=== PATIENT | male | born 1950 ===

== ENCOUNTER 2021-12-15 19:10 | Inpatient (IN) | payer MEDICARE ==
[~2021-12-15] VITALS: Ht 165.1 cm; Wt 87.1 kg
--- NOTE | 2021-12-15 19:25 | NUR ---
Patient was called to be triaged but was not present in the waiting room.
--- NOTE | 2021-12-15 21:45 | NUR ---
After beinf traiged, patient was sent back to waiting room due to no beds available in the ER.
[2021-12-15] MEDS ORDERED: LOVA40TA2 PO (22:08)
[2021-12-15] MEDS ORDERED: ALFU10TA10 PO (22:08)
[2021-12-15] MEDS ORDERED: MAGN400C PO (22:08)
[2021-12-15] MEDS ORDERED: METO50TA16 PO (22:08)
[2021-12-15] MEDS ORDERED: BENA20TA9 PO (22:08)
--- NOTE | 2021-12-16 00:49 | NUR ---
Patient placed in room 3A at this time.
[2021-12-16 01:53] LABS: HEMATOCRIT 36.8 % (36.7-47.1); MEAN CORPUSCULAR HEMOGLOBIN 30.3 uug (23.8-33.4); MEAN CORPUSCULAR VOLUME 90.3 fL (73.0-96.2); PLATELET COUNT (AUTO) 138 K/uL (152-348)
[2021-12-16] MEDS ORDERED: CEFEPIME HCL 2 G in IV DEXTROSE 5% 100 ML IV ONE (02:00)
[2021-12-16] MEDS ORDERED: VANCOMYCIN 1G/D5W 200 ML PIGGYBACK IV ONE (02:00)
[2021-12-16] MEDS ORDERED: IV NORMAL SALINE 500 ML IV ONE (02:00)
[2021-12-16] MEDS ORDERED: VANCOMYCIN IV 500 MG in IV DEXTROSE 5% 100 ML IV ONE (02:00)
[2021-12-16 02:09] LABS: BILIRUBIN,DIRECT 0.4 mg/dL (0.0-0.2); BILIRUBIN,TOTAL 1.6 mg/dL (0.2-1.0); CREATININE 0.8 mg/dL (0.6-1.3); POTASSIUM 3.6 mmol/L (3.5-5.1); TOTAL PROTEIN, SERUM 7.7 g/dL (6.4-8.2)
[2021-12-16] MEDS ORDERED: VANCOMYCIN IV 200 ML ONE (02:16)
[2021-12-16] MEDS ORDERED: VANCOMYCIN HCL 500 MG VIAL ONE (02:16)
[2021-12-16] MEDS ORDERED: CEFEPIME HCL 1 G VIAL ONE (02:17)
--- NOTE | 2021-12-16 02:20 | NUR ---
pt taken to cat scan.
--- NOTE | 2021-12-16 02:46 | NUR ---
pt returned from cat scan.
[2021-12-16] MEDS ORDERED: NITROGLYCERIN 0.4 MG/TAB BOTTLE SL PRN (03:45)
--- NOTE | 2021-12-16 03:49 | NUR ---
Alejandra Christine called and spoke with Dr. Escalante for admission to the hospital.
--- NOTE | 2021-12-16 03:53 | NUR ---
spoke with boiling house hand Mike she states there is no room for the pt upstairs, she is made aware he is tele status.
[2021-12-16 05:57] LABS: *BILIRUBIN,URIN NEGATIVE (NEGATIVE); *BLOOD, URINE 1+ (NEGATIVE); *CLARITY,URINE CLEAR (CLEAR); *COLOR,URINE YELLOW (YELLOW); *KETONES,URINE TRACE (NEGATIVE); *UROBILINOGEN,URINE 0.2 E.U./dl (NORMAL); LEUKOCYTE ESTERASE ,URINE NEGATIVE (NEGATIVE); NITRITE, URINE NEGATIVE (NEGATIVE); UGLUCOSE NEGATIVE (NEGATIVE)
[2021-12-16] MEDS ORDERED: CEFEPIME HCL 1 G in IV DEXTROSE 5% 50 ML IV SCH (06:00)
[2021-12-16] MEDS ORDERED: ENOXAPARIN SODIUM 40 MG/0.4 ML DISP.SYRIN SQ SCH (06:00)
[2021-12-16] MEDS ORDERED: ENOXAPARIN SODIUM 40 MG/0.4 ML DISP.SYRIN SQ ONE (06:17)
[2021-12-16 06:39] LABS: BACTERIA,URINE FEW /HPF (NONE SEEN); SQUAMOUS EPITHELIAL CELL,UR FEW /HPF (NONE SEEN); WBC,URINE 0-3 /HPF (0-3)
[2021-12-16 07:23] LABS: HEMATOCRIT 34.5 % (36.7-47.1); MEAN CORPUSCULAR HEMOGLOBIN 30.8 uug (23.8-33.4); MEAN CORPUSCULAR VOLUME 89.6 fL (73.0-96.2)
[2021-12-16 07:28] LABS: BILIRUBIN,TOTAL 1.4 mg/dL (0.2-1.0); CREATININE 0.7 mg/dL (0.6-1.3); MAGNESIUM 1.9 mg/dL (1.8-2.4); PHOSPHOROUS 2.9 mg/dL (2.5-4.9); POTASSIUM 3.4 mmol/L (3.5-5.1); TOTAL PROTEIN, SERUM 6.9 g/dL (6.4-8.2)
[2021-12-16 07:31] LABS: PLATELET COUNT (AUTO) 36 K/uL (152-348)
--- NOTE | 2021-12-16 07:32 | NUR ---
patient resting in bed, GCS 15, awaken spontaniously. patient AAOx4, has bilateral LE edema +2, patient has left leg redness and warm to touch, history of cellulitis, night nurse informed me of abx admin during his shift
[2021-12-16 07:34] LABS: THYROID STIMULATING HORMONE 3.463 mIU/mL (0.358-3.740)
[2021-12-16 08:08] LABS: BAND % (MANUAL) 1 % (0-10); LYMPHOCYTES % (MANUAL) 18 % (20-40); MONOCYTES % (MANUAL) 8 % (2-10); NEUTROPHILS % (MANUAL) 73 % (42-75)
[2021-12-16] MEDS ORDERED: FUROSEMIDE 40 MG/4 ML VIAL IVP SCH (09:00)
[2021-12-16] MEDS ORDERED: METOPROLOL TARTRATE 50 MG TABLET ONE ×2 (09:37→21:26)
[2021-12-16] MEDS: METOPROLOL TARTRATE 50 MG TABLET PO SCH ×2 (09:46→21:52)
--- NOTE | 2021-12-16 10:27 | NUR ---
WOUND CARE CONSULT: PT PRESENTS WITH VERY RED,WARM SWOLLEN LEFT LEG, ESPECIALLY FOOT AND LOWER LEG, PRESENT ON ADMISSION. DR DUPREE NOTIFIED OF DPM CONSULT REQUEST. IN AGREEMENT WITH PLAN OF CARE.
[2021-12-16] MEDS ORDERED: POTASSIUM CHLORIDE 20 MEQ TAB.PRT.SR ONE (10:54)
[2021-12-16] MEDS ORDERED: POTASSIUM CHLORIDE 20 MEQ TAB.PRT.SR PO ONE (11:00)
[2021-12-16 11:05] LABS: HEMATOCRIT 34.8 % (36.7-47.1); MEAN CORPUSCULAR HEMOGLOBIN 30.6 uug (23.8-33.4); MEAN CORPUSCULAR VOLUME 90.4 fL (73.0-96.2); PLATELET COUNT (AUTO) 147 K/uL (152-348)
[2021-12-16] MEDS: APIXABAN 5 MG TABLET PO SCH ×2 (12:58→21:51)
[2021-12-16] MEDS: CEFEPIME HCL 2 G in IV DEXTROSE 5% 100 ML IV SCH (17:53)
--- NOTE | 2021-12-16 19:01 | NUR ---
patient resting in bed, family at bedside, awaiting bed in [facility], report given to Silvia
--- NOTE | 2021-12-16 19:50 | NUR ---
called for bed. will call us back
--- NOTE | 2021-12-16 20:00 | NUR ---
3rd floor called back. No beds available
[2021-12-16] MEDS ORDERED: VANCOMYCIN IV 1,250 MG in IV DEXTROSE 5% 250 ML IV SCH (21:00)
[2021-12-16] MEDS ORDERED: ALFUZOSIN HCL 10 MG TAB.SR.24H PO ONE (21:26)
[2021-12-16] MEDS: ALFUZOSIN HCL 10 MG TAB.SR.24H PO SCH (21:52)
[2021-12-16] MEDS: ZOLPIDEM 5 MG TABLET PO SCH (22:00)
[2021-12-16] MEDS ORDERED: ZOLPIDEM 5 MG TABLET ONE (22:43)
[2021-12-17] MEDS: CEFEPIME HCL 2 G in IV DEXTROSE 5% 100 ML IV SCH ×2 (05:02→15:40)
--- NOTE | 2021-12-17 06:00 | NUR ---
Patient will go to room 330
--- NOTE | 2021-12-17 06:10 | NUR ---
Called 3rd floor to give report. As per Bernice, the nurses are busy and unable to take the patient.
[2021-12-17 07:13] LABS: MEAN CORPUSCULAR HEMOGLOBIN 30.3 uug (23.8-33.4); MEAN CORPUSCULAR VOLUME 90.3 fL (73.0-96.2); PLATELET COUNT (AUTO) 124 K/uL (152-348)
[2021-12-17 07:39] LABS: BILIRUBIN,TOTAL 1.5 mg/dL (0.2-1.0); CREATININE 0.7 mg/dL (0.6-1.3); PHOSPHOROUS 2.8 mg/dL (2.5-4.9); POTASSIUM 3.8 mmol/L (3.5-5.1)
--- NOTE | 2021-12-17 08:19 | NUR ---
patient resting in bed, eating breakfast awaiting transfer
--- NOTE | 2021-12-17 08:40 | NUR ---
Pt trans to tele floor room 330, NAD noted.
--- NOTE | 2021-12-17 08:53 | NUR ---
patient transfered to bed 330 report given to Asia BEAULIEU
--- NOTE | 2021-12-17 09:00 | NUR ---
ADMITTED FROM ER A71 YO MALE ALERT AND ORIENTED X3 WITH ADMITTING DX OF CELLULITIS LEFT LEG. CONNECTED ON MONITOR REMAINS AFIB CONTROLLED AT A RATE OF 79/MIN. DENIES CHEST PAIN, SOB BUT DISCOMFORT ON LLE. NOTED LLE REDDENED AND TENDER TO TOUCH. ROUTINE ADMISSION ASSESSMENT INITIATED, HOSPITALIST NOTIFIED FOR FURTHER ORDERS.
[2021-12-17 09:06] VITALS: BP 160/73
[2021-12-17] MEDS: METOPROLOL TARTRATE 50 MG TABLET PO SCH ×2 (09:31→21:07)
[2021-12-17] MEDS: APIXABAN 5 MG TABLET PO SCH ×2 (09:32→21:08)
[2021-12-17] MEDS: BENAZEPRIL HCL 10 MG TABLET PO SCH (09:32)
[2021-12-17 10:13] LABS: BAND % (MANUAL) 4 % (0-10); EOSINOPHILS % (MANUAL) 4 % (0-8); LYMPHOCYTES % (MANUAL) 29 % (20-40); MONOCYTES % (MANUAL) 6 % (2-10); NEUTROPHILS % (MANUAL) 57 % (42-75)
[2021-12-17 12:03] VITALS: BP 124/75
[2021-12-17 16:07] VITALS: BP 123/82
--- NOTE | 2021-12-17 18:32 | NUR ---
NO ACUTE CHANGE FROM ADMISSION ASSESSMENT. STARTED ON IV ANTIBIOTIC FOR CELLULITIS NO ADVERSE OR ALLERGY REACTION NOTED. CONTINUE TELE MONITORING FOR CHF. AFIB ON MONITOR
--- NOTE | 2021-12-17 19:30 | NUR ---
Received patient lying in bed. AAOx4. In no apparent distress. Denies any pain or SOB. Controlled A. fib on tele with HR of 83/min. IV site on right FA intact and patent. BLE reddened, skin intact. Needs assessed and attended to. Safety measure initiated and call light within reached.
[2021-12-17 20:00] VITALS: BP 131/73
[2021-12-17] MEDS: ZOLPIDEM 5 MG TABLET PO SCH (21:07)
[2021-12-17] MEDS: ALFUZOSIN HCL 10 MG TAB.SR.24H PO SCH (21:07)
[2021-12-18 04:00] VITALS: BP 146/78
[2021-12-18] MEDS: CEFEPIME HCL 2 G in IV DEXTROSE 5% 100 ML IV SCH (04:50)
--- NOTE | 2021-12-18 05:42 | NUR ---
Patient slept well during the night. In no acute distress. No complain of any pain or SOB. Controlled A. fib on tele with HR of 81/min. IV site on right FA intact and patent. No adverse reaction noted from IV antibiotic. Needs attended to and met. Safety measure maintained and call light within reached.
[2021-12-18 06:44] LABS: HEMATOCRIT 34.7 % (36.7-47.1); MEAN CORPUSCULAR HEMOGLOBIN 30.2 uug (23.8-33.4); MEAN CORPUSCULAR VOLUME 89.7 fL (73.0-96.2); PLATELET COUNT (AUTO) 152 K/uL (152-348)
[2021-12-18 07:06] LABS: CREATININE 0.8 mg/dL (0.6-1.3); PHOSPHOROUS 3.3 mg/dL (2.5-4.9); POTASSIUM 3.6 mmol/L (3.5-5.1)
--- NOTE | 2021-12-18 08:00 | NUR ---
PATIENT AWAKE ALERT AND ORIENTED X3, COOPERATIVE AND APPROPRIATE IN ALL HIS RESPONSES, DENIES PAIN/SOB. AFIB ON MONITOR.
[2021-12-18] MEDS: APIXABAN 5 MG TABLET PO SCH ×2 (08:42→21:58)
[2021-12-18] MEDS: BENAZEPRIL HCL 10 MG TABLET PO SCH (08:42)
[2021-12-18] MEDS: METOPROLOL TARTRATE 50 MG TABLET PO SCH ×2 (08:43→22:06)
[2021-12-18] MEDS ORDERED: FUROSEMIDE 20 MG/2 ML VIAL IV ONE (09:15)
--- NOTE | 2021-12-18 09:30 | NUR ---
SEEN BY HOSPITALIST PATIENT STATUS CHANGED TO MS
--- NOTE | 2021-12-18 10:00 | NUR ---
ASSISTED TO BATHROOM WITH 2 PERSON ASSIST ON TRANSFER FROM BED TO TOILET AND BACK. PATIENT WILL BE FOLLOWED BY PT.
--- NOTE | 2021-12-18 11:30 | NUR ---
SEEN BY PHYSICAL THERAPIST FOR FOLLOW-UP PER PT PT WILL BENEFIT FROM PHYSICAL THERAPY. SEE NOTES
[2021-12-18 12:00] VITALS: BP 101/67
[2021-12-18] MEDS ORDERED: CEFTRIAXONE 2 G VIAL IM SCH (12:30)
[2021-12-18] MEDS: CEFTRIAXONE 2 G in IV DEXTROSE 5% 100 ML IV SCH (14:27)
[2021-12-18 16:00] VITALS: BP 124/78
[2021-12-18 20:20] VITALS: BP 128/85
[2021-12-18] MEDS: ZOLPIDEM 5 MG TABLET PO SCH (22:00)
[2021-12-18] MEDS: ALFUZOSIN HCL 10 MG TAB.SR.24H PO SCH (22:00)
--- NOTE | 2021-12-19 00:22 | NUR ---
PT RESTING IN GURNEY WITH EYES CLOSED. NAD NOTED, VS STABLE, RESPIRATION EVEN AND UNLABORED ON RA. ROOM LIGHTS DIMMED AND SAFETY MEASURES IN PLACE.
[2021-12-19 04:00] VITALS: BP 130/84
--- NOTE | 2021-12-19 07:29 | NUR ---
PT REPORT GIVEN TO DARBY BEAULIEU FOR CONTINUITY OF CARE. ALL CARE ENDORSED, QUESTIONS AND CONCERNS ADDRESSED.
[2021-12-19] MEDS: BENAZEPRIL HCL 10 MG TABLET PO SCH (08:31)
[2021-12-19] MEDS: APIXABAN 5 MG TABLET PO SCH (08:31)
[2021-12-19] MEDS: METOPROLOL TARTRATE 50 MG TABLET PO SCH (08:31)
[2021-12-19 12:09] VITALS: BP 124/74
[2021-12-19] MEDS: CEFTRIAXONE 2 G in IV DEXTROSE 5% 100 ML IV SCH (13:59)
[2021-12-19 16:30] VITALS: BP 138/71
[2021-12-19] MEDS ORDERED: NITR0.4T48 SL (17:57)
[2021-12-19] MEDS ORDERED: PANT40TA2 PO (17:57)
[2021-12-19] MEDS ORDERED: APIX5TAB PO (17:57)
[2021-12-19] MEDS ORDERED: ALFU10TA10 PO (17:57)
[2021-12-19] MEDS ORDERED: ASCO500C18 PO (17:57)
[2021-12-19] MEDS ORDERED: METO50TA16 PO (17:57)
[2021-12-19] MEDS ORDERED: ZINC220T4 PO (17:57)
[2021-12-19] MEDS ORDERED: CEFT1FRO2 IV (17:57)
[2021-12-19] MEDS ORDERED: ZOLP5TAB2 PO (17:57)
[2021-12-19] MEDS ORDERED: MULT-594 PO (17:57)
--- NOTE | 2021-12-19 18:47 | NUR ---
Patient received care well throughout shift with no complaints of pain or distress. IV site patent and intact. Patient had bowel movement today. Patient to be discharged and admitted to rehab unit. Will endorse information to PM nurse.
== END 2021-12-19 19:50 | DRG 871 ==
LOC: ER 19:14 → TRANSITION 12-16 05:34 → TELE3 12-17 08:18 → MEDSURG3 12-18 10:31
PROVIDERS: ADMIT Internal Medicine; ATTEND Internal Medicine
DX: A41.9 Sepsis, unspecified organism (principal); E43 Unspecified severe protein-calorie malnutrition; I50.31 Acute diastolic (congestive) heart failure; L03.116 Cellulitis of left lower limb; I48.20 Chronic atrial fibrillation, unspecified; D68.59 Other primary thrombophilia; L03.115 Cellulitis of right lower limb; J90 Pleural effusion, not elsewhere classified; D64.9 Anemia, unspecified; Z79.01 Long term (current) use of anticoagulants; D69.6 Thrombocytopenia, unspecified; E66.9 Obesity, unspecified; E78.5 Hyperlipidemia, unspecified; Z20.822 Contact with and (suspected) exposure to COVID-19; Z88.0 Allergy status to penicillin; I87.2 Venous insufficiency (chronic) (peripheral); R74.01 Elevation of levels of liver transaminase levels; N40.0 Benign prostatic hyperplasia without lower urinary tract symptoms; Z74.09 Other reduced mobility; R53.1 Weakness; M79.662 Pain in left lower leg; Z68.32 Body mass index [BMI] 32.0-32.9, adult; I11.0 Hypertensive heart disease with heart failure; I89.0 Lymphedema, not elsewhere classified; E80.6 Other disorders of bilirubin metabolism
CPT/HCPCS: 36415; 70030-TC; 71045; 73551; 73590; 73700; 83605; 83690; 83735; 84100; 84443; 84484; 85025; 86803; 87040; 87806; 93005; 93307; 97161; A4663; G0378; J0692; J0696; J1650; J1940; J3370; J7040; J7050; J8499

== ENCOUNTER 2021-12-19 20:07 | Inpatient (IN) | payer MEDICARE ==
[~2021-12-19] VITALS: Ht 165.1 cm; Wt 89.4 kg
[2021-12-19 20:00] VITALS: BP 136/87
[~2021-12-19 20:07] MED LIST: ALFU10TA10 PO; APIX5TAB PO; ASCO500C18 PO; BENA20TA9 PO; CEFT1FRO2 IV; LOVA40TA2 PO; MAGN400C PO; METO50TA16 PO; MULT-594 PO; NITR0.4T48 SL; PANT40TA2 PO; ZINC220T4 PO; ZOLP5TAB2 PO
[2021-12-19] MEDS ORDERED: REMEDY ESSENTIAL ZINC PASTE 113 GM TOP PRN (20:15)
[2021-12-19] MEDS ORDERED: NITROGLYCERIN 0.4 MG/TAB BOTTLE SL PRN (20:45)
[2021-12-19] MEDS ORDERED: ZOLPIDEM 5 MG TABLET PO SCH (21:00)
[2021-12-19] MEDS ORDERED: CEFTRIAXONE 1 G in IV DEXTROSE 5% 50 ML IV SCH (21:00)
[2021-12-19] MEDS: ALFUZOSIN HCL 10 MG TAB.SR.24H PO SCH (21:32)
[2021-12-19] MEDS: APIXABAN 5 MG TABLET PO SCH (21:33)
[2021-12-19] MEDS: METOPROLOL TARTRATE 50 MG TABLET PO SCH (21:33)
--- NOTE | 2021-12-19 22:25 | NUR ---
Admitted pt from [facility] to Rehab with no respiratory distress noted. He is alert and oriented, able to make needs known. Initial assessment done, full body assessment performed with pictures taken and placed in chart. Heplock on VIMAL patent and intact, flushed with NS. Med recon to be done by Venecia GUTIERREZ and Dr. Grant informed of admission. Urinal at bedside. All needs attended. Call light placed within reach, oriented to room. Will continue to monitor.
[2021-12-20 04:00] VITALS: BP 125/86
[2021-12-20] MEDS: PANTOPRAZOLE SODIUM 40 MG TABLET.DR PO SCH (06:23)
--- NOTE | 2021-12-20 06:50 | NUR ---
Pt slept intermittently throughout the night, easily arousable for care. Denies pain and discomfort at this time. Urinal at bedside. All needs attended. Call light placed within reach. Will endorse to next shift.
[2021-12-20 08:42] VITALS: BP 116/83
[2021-12-20] MEDS ORDERED: Medication Not On Formulary EA (Ascorbic Acid (Vitamin C) 500 MG) PO SCH (09:00)
[2021-12-20] MEDS ORDERED: Medication Not On Formulary EA (Zinc Sulfate 1 TAB) PO SCH (09:00)
[2021-12-20] MEDS ORDERED: Medication Not On Formulary EA (Multivitamins (Multivitamin) 1 EACH) PO SCH (09:00)
[2021-12-20] MEDS: ZINC SULFATE 220 MG CAPSULE PO SCH (09:16)
[2021-12-20] MEDS: MULTIVITAMINS,THERAPEUTIC TABLET PO SCH (09:16)
[2021-12-20] MEDS: ASCORBIC ACID 500 MG TABLET PO SCH (09:16)
[2021-12-20] MEDS: BENAZEPRIL HCL 20 MG TABLET PO SCH (09:19)
[2021-12-20] MEDS: METOPROLOL TARTRATE 50 MG TABLET PO SCH ×2 (09:20→20:58)
[2021-12-20] MEDS: APIXABAN 5 MG TABLET PO SCH ×2 (09:24→21:04)
[2021-12-20 16:14] VITALS: BP 122/83
[2021-12-20 20:33] VITALS: BP 123/76
[2021-12-20] MEDS: ZOLPIDEM 5 MG TABLET PO PRN (20:58)
[2021-12-20] MEDS: ALFUZOSIN HCL 10 MG TAB.SR.24H PO SCH (20:58)
[2021-12-20] MEDS ORDERED: CEFTRIAXONE 2 G in IV DEXTROSE 5% 50 ML IV SCH (21:00)
--- NOTE | 2021-12-20 23:53 | NUR ---
Awake alert and oriented x4 Family in with patient at beginning of shift. VSS. On IV ABT given as scheduled. No acute distress noted. Will monitor patient. Repositioned for comfort. Uses urinal when voiding. No BM noted this shift. Kept comfortable.
[2021-12-21 04:33] VITALS: BP 107/63
[2021-12-21] MEDS: PANTOPRAZOLE SODIUM 40 MG TABLET.DR PO SCH (06:08)
[2021-12-21 07:31] LABS: HEMATOCRIT 38.8 % (36.7-47.1); MEAN CORPUSCULAR HEMOGLOBIN 30.2 uug (23.8-33.4)
[2021-12-21 07:53] LABS: BILIRUBIN,TOTAL 0.3 mg/dL (0.2-1.0); CREATININE 0.8 mg/dL (0.6-1.3); MAGNESIUM 1.9 mg/dL (1.8-2.4); PHOSPHOROUS 3.8 mg/dL (2.5-4.9)
[2021-12-21 08:28] LABS: PLATELET COUNT (AUTO) 217 K/uL (152-348)
[2021-12-21] MEDS: MULTIVITAMINS,THERAPEUTIC TABLET PO SCH (08:37)
[2021-12-21] MEDS: ASCORBIC ACID 500 MG TABLET PO SCH (08:37)
[2021-12-21] MEDS: METOPROLOL TARTRATE 50 MG TABLET PO SCH ×2 (08:39→20:48)
[2021-12-21] MEDS: BENAZEPRIL HCL 20 MG TABLET PO SCH (08:39)
[2021-12-21] MEDS: ZINC SULFATE 220 MG CAPSULE PO SCH (08:40)
[2021-12-21] MEDS: APIXABAN 5 MG TABLET PO SCH ×2 (08:41→20:49)
[2021-12-21] MEDS: CEphaleXIN 500 MG CAPSULE PO SCH ×2 (13:29→17:37)
[2021-12-21 16:41] VITALS: BP 121/70
[2021-12-21 18:52] LABS: NEUTROPHILS % (MANUAL) 0 % (42-75)
[2021-12-21 20:40] VITALS: BP 144/83
[2021-12-21] MEDS: ALFUZOSIN HCL 10 MG TAB.SR.24H PO SCH (20:48)
[2021-12-21] MEDS: ACIDOPHILUS/BULGARICUS CHEW TAB PO SCH (20:48)
[2021-12-22] MEDS: CEphaleXIN 500 MG CAPSULE PO SCH ×5 (00:03→23:21)
[2021-12-22] MEDS: ZOLPIDEM 5 MG TABLET PO PRN (00:09)
[2021-12-22] MEDS: PANTOPRAZOLE SODIUM 40 MG TABLET.DR PO SCH (05:41)
[2021-12-22 05:51] VITALS: BP 127/76
[2021-12-22 07:30] VITALS: BP 116/72
--- NOTE | 2021-12-22 08:00 | NUR ---
received awake comfortably watching tv. no ss of pain or sob. iv intact no ss of infiltration or phlebitis. pt has no complaints at this time. bed at lowest and locked, siderails up x2, bed alarm on, urinal and call light in reach. will cont to monitor.
[2021-12-22] MEDS: ACIDOPHILUS/BULGARICUS CHEW TAB PO SCH ×2 (10:36→20:37)
[2021-12-22] MEDS: ASCORBIC ACID 500 MG TABLET PO SCH (10:36)
[2021-12-22] MEDS: MULTIVITAMINS,THERAPEUTIC TABLET PO SCH (10:36)
[2021-12-22] MEDS: BENAZEPRIL HCL 20 MG TABLET PO SCH (10:37)
[2021-12-22] MEDS: ZINC SULFATE 220 MG CAPSULE PO SCH (10:37)
[2021-12-22] MEDS: METOPROLOL TARTRATE 50 MG TABLET PO SCH ×2 (10:37→20:38)
[2021-12-22] MEDS: APIXABAN 5 MG TABLET PO SCH ×2 (10:37→20:39)
--- NOTE | 2021-12-22 11:10 | NUR ---
INDIVIDUALIZED PLAN OF CARE
--- NOTE | 2021-12-22 15:17 | NUR ---
seen and examined by dr. lloyd with new order for podiatry consult carried out.
[2021-12-22 16:00] VITALS: BP 110/71
--- NOTE | 2021-12-22 18:23 | NUR ---
needs attended. safety measures kept. call light and personal belongings in reach. comfortable.
[2021-12-22 20:00] VITALS: BP 117/69
[2021-12-22] MEDS: ALFUZOSIN HCL 10 MG TAB.SR.24H PO SCH (20:38)
[2021-12-23 04:24] VITALS: BP 111/72
[2021-12-23] MEDS: PANTOPRAZOLE SODIUM 40 MG TABLET.DR PO SCH (05:31)
[2021-12-23] MEDS: CEphaleXIN 500 MG CAPSULE PO SCH ×3 (05:31→19:02)
[2021-12-23 07:44] VITALS: BP 120/88
[2021-12-23] MEDS: METOPROLOL TARTRATE 50 MG TABLET PO SCH ×2 (11:03→21:27)
[2021-12-23] MEDS: ASCORBIC ACID 500 MG TABLET PO SCH (11:03)
[2021-12-23] MEDS: APIXABAN 5 MG TABLET PO SCH ×2 (11:03→21:28)
[2021-12-23] MEDS: ZINC SULFATE 220 MG CAPSULE PO SCH (11:04)
[2021-12-23] MEDS: ACIDOPHILUS/BULGARICUS CHEW TAB PO SCH ×2 (11:04→21:26)
[2021-12-23] MEDS: BENAZEPRIL HCL 20 MG TABLET PO SCH (11:05)
[2021-12-23] MEDS: MULTIVITAMINS,THERAPEUTIC TABLET PO SCH (11:05)
[2021-12-23 16:00] VITALS: BP 126/82
[2021-12-23 20:24] VITALS: BP 113/73
[2021-12-23] MEDS: ALFUZOSIN HCL 10 MG TAB.SR.24H PO SCH (21:28)
[2021-12-23] MEDS: ZOLPIDEM 5 MG TABLET PO PRN (21:29)
[2021-12-24 04:30] VITALS: BP 108/75
[2021-12-24] MEDS: PANTOPRAZOLE SODIUM 40 MG TABLET.DR PO SCH (05:40)
[2021-12-24 07:30] VITALS: BP 124/80
[2021-12-24] MEDS: MULTIVITAMINS,THERAPEUTIC TABLET PO SCH (10:06)
[2021-12-24] MEDS: APIXABAN 5 MG TABLET PO SCH ×2 (10:06→21:01)
[2021-12-24] MEDS: ASCORBIC ACID 500 MG TABLET PO SCH (10:06)
[2021-12-24] MEDS: METOPROLOL TARTRATE 50 MG TABLET PO SCH ×2 (10:06→20:55)
[2021-12-24] MEDS: CEphaleXIN 500 MG CAPSULE PO SCH ×2 (10:07→16:49)
[2021-12-24] MEDS: BENAZEPRIL HCL 20 MG TABLET PO SCH (10:07)
[2021-12-24] MEDS: ZINC SULFATE 220 MG CAPSULE PO SCH (10:07)
[2021-12-24] MEDS: ACIDOPHILUS/BULGARICUS CHEW TAB PO SCH ×2 (10:08→20:53)
[2021-12-24 16:00] VITALS: BP 107/66
--- NOTE | 2021-12-24 16:03 | NUR ---
INTERDISCIPLINARY TEAM CONFERENCE
--- NOTE | 2021-12-24 17:21 | NUR ---
followed up with the podiatry. Per Dr Pinto, patient will be seen in a day or two. Informed patient, note with understanding. will continue to monitor.
--- NOTE | 2021-12-24 18:58 | NUR ---
Patient remained stable during the shift. no other concerns identified. Removed peripheral line per family/patient request. Patient has no iv meds at this time. per family and patient, reinsert if needed. patient tolerated it well. no pain noted. kept safe at all times. all needs attended. will endorse to the next shift for continuity of care.
--- NOTE | 2021-12-24 19:15 | NUR ---
Received patient on bed, alert and oriented x3, on room air, no shortness of breath noted, no complaint of pain. Safety precautions provided, call light placed within reach.
[2021-12-24 20:00] VITALS: BP 116/68
[2021-12-24] MEDS: ALFUZOSIN HCL 10 MG TAB.SR.24H PO SCH (20:57)
--- NOTE | 2021-12-24 21:20 | NUR ---
Patient requested for Ambien to induced sleep.
[2021-12-25 04:00] VITALS: BP 116/69
[2021-12-25] MEDS: PANTOPRAZOLE SODIUM 40 MG TABLET.DR PO SCH (06:17)
[2021-12-25 06:23] LABS: HEMATOCRIT 39.1 % (36.7-47.1); MEAN CORPUSCULAR HEMOGLOBIN 29.8 uug (23.8-33.4); MEAN CORPUSCULAR VOLUME 89.2 fL (73.0-96.2); PLATELET COUNT (AUTO) 190 K/uL (152-348)
--- NOTE | 2021-12-25 06:40 | NUR ---
Patient slept well, no shortness of breath, able to use urinal for voiding, no complaint of pain. For continuity of care.
[2021-12-25 06:43] LABS: CREATININE 0.8 mg/dL (0.6-1.3); PHOSPHOROUS 4.4 mg/dL (2.5-4.9)
[2021-12-25 08:00] VITALS: BP 114/74
[2021-12-25] MEDS: APIXABAN 5 MG TABLET PO SCH ×2 (10:02→20:56)
[2021-12-25] MEDS: MULTIVITAMINS,THERAPEUTIC TABLET PO SCH (10:03)
[2021-12-25] MEDS: ACIDOPHILUS/BULGARICUS CHEW TAB PO SCH ×2 (10:03→20:55)
[2021-12-25] MEDS: CEphaleXIN 500 MG CAPSULE PO SCH ×2 (10:04→17:22)
[2021-12-25] MEDS: BENAZEPRIL HCL 20 MG TABLET PO SCH (10:04)
[2021-12-25] MEDS: METOPROLOL TARTRATE 50 MG TABLET PO SCH ×2 (10:04→20:57)
[2021-12-25] MEDS: ASCORBIC ACID 500 MG TABLET PO SCH (10:04)
[2021-12-25] MEDS: ZINC SULFATE 220 MG CAPSULE PO SCH (10:04)
[2021-12-25 16:00] VITALS: BP 107/62
--- NOTE | 2021-12-25 18:44 | NUR ---
no acute distress identified during the shift. all needs attended. kept safe. will endorse to the next shift continuity of care.
[2021-12-25 20:15] VITALS: BP 99/64
[2021-12-25] MEDS: ZOLPIDEM 5 MG TABLET PO PRN (20:56)
[2021-12-25] MEDS: ALFUZOSIN HCL 10 MG TAB.SR.24H PO SCH (21:00)
--- NOTE | 2021-12-25 22:50 | NUR ---
Patient reported that he had 2 LBM episodes and asking for anti diarrheal medication at this time. Md made aware with new order of Lomotil.
[2021-12-26] MEDS ORDERED: DIPHENOXYLATE HCL/ATROP SULF TABLET PO PRN (00:15)
[2021-12-26 04:21] VITALS: BP 114/66
[2021-12-26] MEDS: PANTOPRAZOLE SODIUM 40 MG TABLET.DR PO SCH (05:40)
--- NOTE | 2021-12-26 05:40 | NUR ---
Had another small soft formed BM, unable to collect stool for C-diff at this time. Lomotil given as needed and ordered. Will continue to monitor and endorse to oncoming shift accordingly.
[2021-12-26 08:05] VITALS: BP 118/73
[2021-12-26] MEDS: ZINC SULFATE 220 MG CAPSULE PO SCH (08:09)
[2021-12-26] MEDS: ACIDOPHILUS/BULGARICUS CHEW TAB PO SCH ×2 (08:10→20:29)
[2021-12-26] MEDS: METOPROLOL TARTRATE 50 MG TABLET PO SCH ×2 (08:10→20:29)
[2021-12-26] MEDS: ASCORBIC ACID 500 MG TABLET PO SCH (08:10)
[2021-12-26] MEDS: BENAZEPRIL HCL 20 MG TABLET PO SCH (08:11)
[2021-12-26] MEDS: MULTIVITAMINS,THERAPEUTIC TABLET PO SCH (08:11)
[2021-12-26] MEDS: APIXABAN 5 MG TABLET PO SCH ×2 (08:12→20:30)
[2021-12-26] MEDS: CLOTRIMAZOLE 1% CREAM 30 GM TUBE TOP SCH (08:13)
[2021-12-26] MEDS: CEphaleXIN 500 MG CAPSULE PO SCH ×2 (08:13→16:46)
[2021-12-26 16:00] VITALS: BP 103/66
--- NOTE | 2021-12-26 18:03 | NUR ---
no acute distress noted, patient participated in OT, PT services, tolerated well
[2021-12-26 20:00] VITALS: BP 111/65
[2021-12-26] MEDS: ALFUZOSIN HCL 10 MG TAB.SR.24H PO SCH (20:29)
[2021-12-27 04:52] VITALS: BP 99/76
--- NOTE | 2021-12-27 05:14 | NUR ---
Pt slept intermittently during the shift. In no apparent distress. No complain of pain or SOB. Needs attended . Safety measure maintained bed in low position call light and all most need it items within reach bed alarm on will continue to monitor closely.
[2021-12-27] MEDS: PANTOPRAZOLE SODIUM 40 MG TABLET.DR PO SCH (06:07)
[2021-12-27 08:00] VITALS: BP 114/69
[2021-12-27] MEDS: CEphaleXIN 500 MG CAPSULE PO SCH ×2 (08:14→16:08)
[2021-12-27] MEDS: MULTIVITAMINS,THERAPEUTIC TABLET PO SCH (08:14)
[2021-12-27] MEDS: ASCORBIC ACID 500 MG TABLET PO SCH (08:14)
[2021-12-27] MEDS: ZINC SULFATE 220 MG CAPSULE PO SCH (08:14)
[2021-12-27] MEDS: BENAZEPRIL HCL 20 MG TABLET PO SCH (08:15)
[2021-12-27] MEDS: METOPROLOL TARTRATE 50 MG TABLET PO SCH ×2 (08:16→21:00)
[2021-12-27] MEDS: APIXABAN 5 MG TABLET PO SCH ×2 (08:22→21:35)
[2021-12-27] MEDS: CLOTRIMAZOLE 1% CREAM 30 GM TUBE TOP SCH (08:37)
[2021-12-27] MEDS: ACIDOPHILUS/BULGARICUS CHEW TAB PO SCH ×2 (08:37→21:27)
[2021-12-27] MEDS: ACETAMINOPHEN 325 MG TABLET PO PRN (16:09)
[2021-12-27 16:45] VITALS: BP 111/67
--- NOTE | 2021-12-27 19:00 | NUR ---
Received patient on bed, awake, alert, no shortness of breath, no complaint of pain. Safety precautions provided. Call light placed within reach.
[2021-12-27 20:47] VITALS: BP 119/72
[2021-12-27] MEDS: ALFUZOSIN HCL 10 MG TAB.SR.24H PO SCH (21:27)
[2021-12-28 04:47] VITALS: BP 129/67
--- NOTE | 2021-12-28 05:02 | NUR ---
Slept well, no complaint of pain, no shortness of breath, compliant with the medications. Using urinal at the bedside. No significant event within the shift.
[2021-12-28] MEDS: PANTOPRAZOLE SODIUM 40 MG TABLET.DR PO SCH (06:29)
[2021-12-28 07:30] VITALS: BP 108/68
[2021-12-28] MEDS: ACIDOPHILUS/BULGARICUS CHEW TAB PO SCH ×2 (10:31→20:33)
[2021-12-28] MEDS: METOPROLOL TARTRATE 50 MG TABLET PO SCH ×2 (10:31→20:33)
[2021-12-28] MEDS: ASCORBIC ACID 500 MG TABLET PO SCH (10:32)
[2021-12-28] MEDS: CEphaleXIN 500 MG CAPSULE PO SCH ×2 (10:32→16:19)
[2021-12-28] MEDS: MULTIVITAMINS,THERAPEUTIC TABLET PO SCH (10:32)
[2021-12-28] MEDS: BENAZEPRIL HCL 20 MG TABLET PO SCH (10:32)
[2021-12-28] MEDS: ZINC SULFATE 220 MG CAPSULE PO SCH (10:32)
[2021-12-28] MEDS: CLOTRIMAZOLE 1% CREAM 30 GM TUBE TOP SCH (10:34)
[2021-12-28] MEDS: APIXABAN 5 MG TABLET PO SCH ×2 (10:34→20:33)
[2021-12-28 16:00] VITALS: BP 136/89
[2021-12-28 20:18] VITALS: BP 121/82
[2021-12-28] MEDS: ALFUZOSIN HCL 10 MG TAB.SR.24H PO SCH (20:35)
[2021-12-29] MEDS: ZOLPIDEM 5 MG TABLET PO PRN ×2 (01:15→20:49)
[2021-12-29 04:18] VITALS: BP 130/75
[2021-12-29] MEDS: PANTOPRAZOLE SODIUM 40 MG TABLET.DR PO SCH (06:10)
--- NOTE | 2021-12-29 06:37 | NUR ---
No significant event reported all night. No complaint presented. Slept good.. All needs attended and met. VS stable.
[2021-12-29 07:30] VITALS: BP 140/86
[2021-12-29] MEDS: MULTIVITAMINS,THERAPEUTIC TABLET PO SCH (08:54)
[2021-12-29] MEDS: ACIDOPHILUS/BULGARICUS CHEW TAB PO SCH ×2 (08:55→20:45)
[2021-12-29] MEDS: APIXABAN 5 MG TABLET PO SCH ×2 (08:55→20:47)
[2021-12-29] MEDS: ASCORBIC ACID 500 MG TABLET PO SCH (08:55)
[2021-12-29] MEDS: CEphaleXIN 500 MG CAPSULE PO SCH ×2 (08:55→16:19)
[2021-12-29] MEDS: BENAZEPRIL HCL 20 MG TABLET PO SCH (08:58)
[2021-12-29] MEDS: METOPROLOL TARTRATE 50 MG TABLET PO SCH ×2 (08:58→20:46)
[2021-12-29] MEDS: ZINC SULFATE 220 MG CAPSULE PO SCH (08:59)
[2021-12-29] MEDS: CLOTRIMAZOLE 1% CREAM 30 GM TUBE TOP SCH (08:59)
[2021-12-29] MEDS ORDERED: MIRALAX 17 GM POWD.PACK PO SCH (15:45)
[2021-12-29 16:00] VITALS: BP 112/70
[2021-12-29 20:18] VITALS: BP 116/71
[2021-12-29] MEDS: ALFUZOSIN HCL 10 MG TAB.SR.24H PO SCH (20:46)
[2021-12-30 04:21] VITALS: BP 116/83
[2021-12-30] MEDS: PANTOPRAZOLE SODIUM 40 MG TABLET.DR PO SCH (06:14)
[2021-12-30 07:30] VITALS: BP 128/65
[2021-12-30] MEDS: ACIDOPHILUS/BULGARICUS CHEW TAB PO SCH ×2 (08:38→20:43)
[2021-12-30] MEDS: ZINC SULFATE 220 MG CAPSULE PO SCH (08:38)
[2021-12-30] MEDS: CEphaleXIN 500 MG CAPSULE PO SCH ×2 (08:38→16:02)
[2021-12-30] MEDS: ASCORBIC ACID 500 MG TABLET PO SCH (08:38)
[2021-12-30] MEDS: BENAZEPRIL HCL 20 MG TABLET PO SCH (08:38)
[2021-12-30] MEDS: MULTIVITAMINS,THERAPEUTIC TABLET PO SCH (08:38)
[2021-12-30] MEDS: METOPROLOL TARTRATE 50 MG TABLET PO SCH ×2 (08:39→20:44)
[2021-12-30] MEDS: APIXABAN 5 MG TABLET PO SCH ×2 (08:49→20:43)
[2021-12-30] MEDS: CLOTRIMAZOLE 1% CREAM 30 GM TUBE TOP SCH (08:49)
--- NOTE | 2021-12-30 14:50 | NUR ---
patient left with his son for dentist appointment, education provided to remind the dentis that patient is on eliquis and has been taking it, patient son made aware as well, patient and son both verbalized understanding of it. no acute distress noted.
--- NOTE | 2021-12-30 16:03 | NUR ---
patient is still out of pass
--- NOTE | 2021-12-30 19:45 | NUR ---
back from Out on pass, accompanied by Grand daughter
[2021-12-30 20:35] VITALS: BP 106/72
[2021-12-30] MEDS: ALFUZOSIN HCL 10 MG TAB.SR.24H PO SCH (20:45)
[2021-12-31] MEDS: ZOLPIDEM 5 MG TABLET PO PRN ×2 (01:36→21:30)
[2021-12-31 04:50] VITALS: BP 118/72
[2021-12-31] MEDS: PANTOPRAZOLE SODIUM 40 MG TABLET.DR PO SCH (06:15)
--- NOTE | 2021-12-31 06:33 | NUR ---
Slept good, No complaint presented all night. No significant event reported throughout the night. VS stable.
[2021-12-31 08:02] VITALS: BP 115/78
[2021-12-31] MEDS: CEphaleXIN 500 MG CAPSULE PO SCH ×2 (09:18→17:19)
[2021-12-31] MEDS: ACIDOPHILUS/BULGARICUS CHEW TAB PO SCH ×2 (09:19→21:29)
[2021-12-31] MEDS: ZINC SULFATE 220 MG CAPSULE PO SCH (09:19)
[2021-12-31] MEDS: ASCORBIC ACID 500 MG TABLET PO SCH (09:19)
[2021-12-31] MEDS: MULTIVITAMINS,THERAPEUTIC TABLET PO SCH (09:19)
[2021-12-31] MEDS: BENAZEPRIL HCL 20 MG TABLET PO SCH (09:21)
[2021-12-31] MEDS: CLOTRIMAZOLE 1% CREAM 30 GM TUBE TOP SCH (09:22)
[2021-12-31] MEDS: APIXABAN 5 MG TABLET PO SCH ×2 (09:23→21:34)
--- NOTE | 2021-12-31 10:32 | NUR ---
INTERDISCIPLINARY TEAM CONFERENCE
[2021-12-31] MEDS: METOPROLOL TARTRATE 50 MG TABLET PO SCH ×2 (10:40→21:30)
[2021-12-31 16:00] VITALS: BP 110/61
--- NOTE | 2021-12-31 19:00 | NUR ---
Received patient on bed, awake, alert and oriented, no shortness of breath, no complaint of pain. Safety precautions provided, Call light placed within reach.
[2021-12-31 20:55] VITALS: BP 122/62
[2021-12-31] MEDS: ACETAMINOPHEN 325 MG TABLET PO PRN (21:30)
[2021-12-31] MEDS: ALFUZOSIN HCL 10 MG TAB.SR.24H PO SCH (21:30)
[2022-01-01 05:51] VITALS: BP 122/70
--- NOTE | 2022-01-01 06:20 | NUR ---
Patient slept well, compliant with the medication regimen, no complaint of pain or any discomfort. Vitally stable. For continuity of care.
[2022-01-01] MEDS: PANTOPRAZOLE SODIUM 40 MG TABLET.DR PO SCH (06:25)
[2022-01-01] MEDS: ACIDOPHILUS/BULGARICUS CHEW TAB PO SCH ×2 (09:29→20:16)
[2022-01-01] MEDS: MULTIVITAMINS,THERAPEUTIC TABLET PO SCH (09:29)
[2022-01-01] MEDS: CEphaleXIN 500 MG CAPSULE PO SCH ×2 (09:29→16:20)
[2022-01-01] MEDS: ASCORBIC ACID 500 MG TABLET PO SCH (09:29)
[2022-01-01] MEDS: ZINC SULFATE 220 MG CAPSULE PO SCH (09:34)
[2022-01-01] MEDS: APIXABAN 5 MG TABLET PO SCH ×2 (09:34→20:19)
[2022-01-01] MEDS: BENAZEPRIL HCL 20 MG TABLET PO SCH (09:36)
[2022-01-01] MEDS: CLOTRIMAZOLE 1% CREAM 30 GM TUBE TOP SCH (09:37)
[2022-01-01] MEDS: METOPROLOL TARTRATE 50 MG TABLET PO SCH ×2 (09:54→20:17)
[2022-01-01 10:30] VITALS: BP 110/76
[2022-01-01 20:00] VITALS: BP 120/79
[2022-01-01] MEDS: ALFUZOSIN HCL 10 MG TAB.SR.24H PO SCH (20:20)
[2022-01-01] MEDS: ZOLPIDEM 5 MG TABLET PO PRN (23:43)
[2022-01-02] MEDS: PANTOPRAZOLE SODIUM 40 MG TABLET.DR PO SCH (06:05)
[2022-01-02 07:59] VITALS: BP 117/76
[2022-01-02] MEDS: CEphaleXIN 500 MG CAPSULE PO SCH ×2 (09:53→17:34)
[2022-01-02] MEDS: ASCORBIC ACID 500 MG TABLET PO SCH (09:53)
[2022-01-02] MEDS: ACIDOPHILUS/BULGARICUS CHEW TAB PO SCH ×2 (09:53→21:01)
[2022-01-02] MEDS: ZINC SULFATE 220 MG CAPSULE PO SCH (09:53)
[2022-01-02] MEDS: MULTIVITAMINS,THERAPEUTIC TABLET PO SCH (09:53)
[2022-01-02] MEDS: APIXABAN 5 MG TABLET PO SCH ×2 (09:57→21:02)
[2022-01-02] MEDS: METOPROLOL TARTRATE 50 MG TABLET PO SCH ×2 (10:00→21:00)
[2022-01-02] MEDS: BENAZEPRIL HCL 20 MG TABLET PO SCH (10:00)
[2022-01-02] MEDS: CLOTRIMAZOLE 1% CREAM 30 GM TUBE TOP SCH (10:01)
[2022-01-02 16:00] VITALS: BP 116/41
[2022-01-02 20:00] VITALS: BP 112/80
[2022-01-02] MEDS: ALFUZOSIN HCL 10 MG TAB.SR.24H PO SCH (21:00)
[2022-01-02] MEDS: ZOLPIDEM 5 MG TABLET PO PRN (23:48)
[2022-01-03] MEDS: PANTOPRAZOLE SODIUM 40 MG TABLET.DR PO SCH (06:02)
[2022-01-03 06:36] LABS: HEMATOCRIT 37.6 % (36.7-47.1); MEAN CORPUSCULAR HEMOGLOBIN 29.6 uug (23.8-33.4); MEAN CORPUSCULAR VOLUME 88.3 fL (73.0-96.2); PLATELET COUNT (AUTO) 116 K/uL (152-348)
[2022-01-03 06:53] LABS: BILIRUBIN,TOTAL 0.4 mg/dL (0.2-1.0); CREATININE 0.9 mg/dL (0.6-1.3); MAGNESIUM 1.9 mg/dL (1.8-2.4); PHOSPHOROUS 3.9 mg/dL (2.5-4.9); POTASSIUM 3.8 mmol/L (3.5-5.1); TOTAL PROTEIN, SERUM 7.3 g/dL (6.4-8.2)
[2022-01-03 07:43] VITALS: BP 130/85
[2022-01-03] MEDS: MULTIVITAMINS,THERAPEUTIC TABLET PO SCH (09:43)
[2022-01-03] MEDS: ZINC SULFATE 220 MG CAPSULE PO SCH (09:43)
[2022-01-03] MEDS: ACIDOPHILUS/BULGARICUS CHEW TAB PO SCH ×2 (09:43→20:47)
[2022-01-03] MEDS: CEphaleXIN 500 MG CAPSULE PO SCH ×2 (09:43→17:04)
[2022-01-03] MEDS: ASCORBIC ACID 500 MG TABLET PO SCH (09:44)
[2022-01-03] MEDS: METOPROLOL TARTRATE 50 MG TABLET PO SCH ×2 (09:44→20:47)
[2022-01-03] MEDS: BENAZEPRIL HCL 20 MG TABLET PO SCH (09:44)
[2022-01-03] MEDS: APIXABAN 5 MG TABLET PO SCH ×2 (09:46→20:49)
[2022-01-03] MEDS: CLOTRIMAZOLE 1% CREAM 30 GM TUBE TOP SCH (09:46)
--- NOTE | 2022-01-03 11:15 | NUR ---
Received patient resting on bed, awake, alert and oriented, no shortness of breath, no complaint of pain up with PT/OT. Safety precautions provided, Call light placed within reach. Needs attended
[2022-01-03 15:29] VITALS: BP 117/70
[2022-01-03] MEDS: ALFUZOSIN HCL 10 MG TAB.SR.24H PO SCH (20:50)
[2022-01-03 20:56] VITALS: BP 122/80
[2022-01-04] MEDS: PANTOPRAZOLE SODIUM 40 MG TABLET.DR PO SCH (06:04)
[2022-01-04 08:00] VITALS: BP 117/72
[2022-01-04] MEDS: CEphaleXIN 500 MG CAPSULE PO SCH ×2 (09:30→16:53)
[2022-01-04] MEDS: ASCORBIC ACID 500 MG TABLET PO SCH (09:30)
[2022-01-04] MEDS: ZINC SULFATE 220 MG CAPSULE PO SCH (09:30)
[2022-01-04] MEDS: ACIDOPHILUS/BULGARICUS CHEW TAB PO SCH (09:30)
[2022-01-04] MEDS: MULTIVITAMINS,THERAPEUTIC TABLET PO SCH (09:30)
[2022-01-04] MEDS: BENAZEPRIL HCL 20 MG TABLET PO SCH (09:31)
[2022-01-04] MEDS: APIXABAN 5 MG TABLET PO SCH (09:32)
[2022-01-04] MEDS: CLOTRIMAZOLE 1% CREAM 30 GM TUBE TOP SCH (09:33)
[2022-01-04] MEDS: METOPROLOL TARTRATE 50 MG TABLET PO SCH (09:34)
[2022-01-04 16:47] VITALS: BP 117/77
--- NOTE | 2022-01-04 19:20 | NUR ---
Patient discharged to home via wheel chair accompanied by family. In no apparent distress. VS stable.
== END 2022-01-04 19:15 | disposition home health service (06) | DRG 871 ==
PROVIDERS: ADMIT Physical Medicine & Rehabilitation Pain Medicine; ATTEND Physical Medicine & Rehabilitation Pain Medicine
PROC: 0HBRXZZ Excision of Toe Nail, External Approach (ICD-10-PCS; principal; 2021-12-25)
DX: A41.9 Sepsis, unspecified organism (principal); I50.31 Acute diastolic (congestive) heart failure; E43 Unspecified severe protein-calorie malnutrition; L03.116 Cellulitis of left lower limb; L03.115 Cellulitis of right lower limb; I48.20 Chronic atrial fibrillation, unspecified; J90 Pleural effusion, not elsewhere classified; D68.59 Other primary thrombophilia; R17 Unspecified jaundice; D69.6 Thrombocytopenia, unspecified; I10 Essential (primary) hypertension; I87.2 Venous insufficiency (chronic) (peripheral); I89.0 Lymphedema, not elsewhere classified; L94.2 Calcinosis cutis; Z79.01 Long term (current) use of anticoagulants; Z88.0 Allergy status to penicillin; I11.0 Hypertensive heart disease with heart failure; B35.1 Tinea unguium; D64.9 Anemia, unspecified; L60.2 Onychogryphosis; E66.9 Obesity, unspecified; E78.5 Hyperlipidemia, unspecified; I08.1 Rheumatic disorders of both mitral and tricuspid valves; M41.9 Scoliosis, unspecified; Z20.822 Contact with and (suspected) exposure to COVID-19; Z68.32 Body mass index [BMI] 32.0-32.9, adult; R74.01 Elevation of levels of liver transaminase levels; Z88.8 Allergy status to other drugs, medicaments and biological substances; N40.0 Benign prostatic hyperplasia without lower urinary tract symptoms
CPT/HCPCS: 36415; 70030-TC; 83735; 84100; 85025; 97161; 97535-GO-CO; J0696; J8499